=== PATIENT | female | born 1995 | race African-American/Black ===

== ENCOUNTER 2017-05-07 16:41 | Emergency (ER) | payer OTHER ==
[~2017-05-07] VITALS: Ht 180.3 cm; Wt 61.7 kg
[~2017-05-07 16:41] MED LIST: BACTRIM DS TABL1 TAB PO; KEFLEX250 MG/5 M PO; LOTRISONE CREAM45 GM TP; POLYTRIM EYE DR10 ML LEFT EYE
== END 2017-05-07 18:15 ==
LOC: EDMED 16:41
DX: N63 Unspecified lump in breast (principal)